=== PATIENT | female | born 1975 | race Two or more races ===

== ENCOUNTER 2021-10-22 16:53 | Inpatient (IN) | payer MEDICAID ==
[~2021-10-22] VITALS: Ht 165.1 cm; Wt 80.3 kg
[2021-10-22] MEDS ORDERED: IOHEXOL-350 100 ML BOTTLE ONE (17:45)
[2021-10-22 17:48] LABS: BASOPHILS % 0.4 % (0.0-2.0); EOSINOPHILS % 1.3 % (0.0-5.0); HEMOGLOBIN. 12.1 g/dL (12.0-16.0); LYMPHOCYTES % 17.7 % (20.0-50.0); MEAN CORPUSCULAR HEMOGLOBIN 30.7 pg (28.0-32.0); MEAN PLATELET VOLUME 9.9 fl (7.4-10.4); MONOCYTES % 5.3 % (2.0-8.0); NEUTROPHILS % 75.3 % (40.0-76.0); PLATELET 232 x1000/uL (130-400); RED BLOOD CELL COUNT 3.93 mill/uL (4.2-5.4)
[2021-10-22 17:51] LABS: CHLORIDE 101 mEq/L (98-107)
[2021-10-22 18:01] LABS: ETHANOL BLOOD < 10 mg/dL
[2021-10-22 19:48] LABS: CLARITY URINE CLEAR (CLEAR); COLOR URINE YELLOW (YELLOW); KETONES URINE NEGATIVE (NEGATIVE); LEUKOCYTE ESTERASE URINE NEGATIVE (NEGATIVE); NITRITE URINE NEGATIVE (NEGATIVE); OCCULT BLOOD URINE NEGATIVE (NEGATIVE); PROTEIN URINE NEGATIVE (NEGATIVE); UROBILINOGEN URINE 0.2 E.U./dL (0.2-1.0)
[2021-10-22 19:58] LABS: *AMPHETAMINES SCREEN URINE NEGATIVE (NEGATIVE); *BARBITURATES SCREEN URINE NEGATIVE (NEGATIVE); *BENZODIAZEPINES SCREEN URINE NEGATIVE (NEGATIVE); *COCAINE SCREEN URINE NEGATIVE (NEGATIVE); CANNABINOID URINE SCREEN PRESUMTIVE POSITIVE (NEGATIVE); METHADONE URINE SCREEN NEGATIVE (NEGATIVE); OPIATES URINE SCREEN NEGATIVE (NEGATIVE); PHENCYCLIDINE URINE SCREEN NEGATIVE (NEGATIVE)
[2021-10-22] MEDS ORDERED: GUAIFENESIN 200MG/10ML SUGAR FREE UDC PO PRN (22:45)
[2021-10-22] MEDS ORDERED: ZOLPIDEM TARTRATE 5MG TABLET PO PRN (22:45)
[2021-10-22] MEDS ORDERED: ONDANSETRON HCL 4MG/2ML INJ IV PRN (22:45)
[2021-10-22] MEDS ORDERED: NITROGLYCERIN 0.4MG TABLET SL SL PRN (22:45)
[2021-10-22] MEDS ORDERED: CLONIDINE 0.1MG TABLET PO PRN (22:45)
[2021-10-22] MEDS ORDERED: KETOROLAC 15MG/ML VIAL IV PRN (22:45)
[2021-10-22] MEDS ORDERED: MAGNESIUM/ALUMINUM HYDROXIDE/SIMETHICONE 30ML UDC PO PRN (22:45)
[2021-10-22] MEDS ORDERED: NA PHOS,M-B/NA PHOS,DI-BA ENEMA 118ML PR PRN (22:45)
[2021-10-22] MEDS ORDERED: IPRATROPIUM/ALBUTEROL 0.5-3(2.5)MG/3ML NEB NEB PRN (22:45)
[2021-10-22] MEDS ORDERED: ACETAMINOPHEN 325MG TABLET PO PRN ×2 (22:45)
[2021-10-22] MEDS ORDERED: DOCUSATE SODIUM 100MG CAPSULE PO PRN (22:45)
[2021-10-23 01:39] LABS: FOLIC ACID (FOLATE) SERUM 19.2 ng/mL (>5.38)
[2021-10-23 01:53] LABS: T4 FREE 0.97 ng/dL (0.76-1.46)
[2021-10-23 06:10] LABS: BASOPHILS % 0.5 % (0.0-2.0); EOSINOPHILS % 1.1 % (0.0-5.0); HEMATOCRIT. 36.4 % (36.0-48.0); HEMOGLOBIN. 12.6 g/dL (12.0-16.0); LYMPHOCYTES % 22.1 % (20.0-50.0); MEAN CORPUSCULAR VOLUME 89.3 fL (81.0-99.0); MEAN PLATELET VOLUME 10.1 fl (7.4-10.4); MONOCYTES % 6.4 % (2.0-8.0); NEUTROPHILS % 69.9 % (40.0-76.0); PLATELET 232 x1000/uL (130-400); RED BLOOD CELL COUNT 4.08 mill/uL (4.2-5.4); RED CELL DISTRIBUTION WIDTH 12.7 % (11.6-14.6)
[2021-10-23 06:15] LABS: CHLORIDE 109 mEq/L (98-107)
[2021-10-23 06:25] LABS: CREATINE KINASE 63 IU/L (26-192); CREATINE KINASE MB FRACTION < 1.0 ng/mL (0.5-3.6)
[2021-10-23] MEDS ORDERED: GABA-529 PO (09:09)
[2021-10-23] MEDS ORDERED: SIMV-43 PO (09:09)
[2021-10-23] MEDS ORDERED: LEVO150T8 PO (09:09)
[2021-10-23 09:15] VITALS: BP 104/61
[2021-10-23] MEDS: ENOXAPARIN 40MG/0.4ML SYR SUBCUT SCH (09:45)
[2021-10-23] MEDS: FAMOTIDINE 20MG TABLET PO SCH ×2 (09:45→20:11)
[2021-10-23] MEDS: ASPIRIN 325MG EC TABLET PO SCH (09:45)
[2021-10-23 12:00] VITALS: BP 109/65
[2021-10-23] MEDS: LEVOTHYROXINE SODIUM 150MCG TABLET PO SCH (12:42)
[2021-10-23 16:25] LABS: CREATINE KINASE 74 IU/L (26-192); CREATINE KINASE MB FRACTION < 1.0 ng/mL (0.5-3.6)
[2021-10-23 20:07] VITALS: BP 98/57
[2021-10-24] VITALS: BP 99/53
[2021-10-24 04:00] VITALS: BP 103/50
[2021-10-24] MEDS: LEVOTHYROXINE SODIUM 150MCG TABLET PO SCH (06:49)
[2021-10-24 08:01] VITALS: BP 90/55
[2021-10-24] MEDS: ASPIRIN 325MG EC TABLET PO SCH (09:00)
[2021-10-24] MEDS: FAMOTIDINE 20MG TABLET PO SCH (09:00)
[2021-10-24] MEDS: ENOXAPARIN 40MG/0.4ML SYR SUBCUT SCH (09:01)
[2021-10-24] MEDS ORDERED: ASPI-1406 MT (10:43)
[2021-10-24 10:53] VITALS: BP 102/65
== END 2021-10-24 11:08 | disposition home or self-care (01) | DRG 47 ==
LOC: ER 16:53 → MICUSO 19:49 → EDBEDREQ 20:51 → EDBEDREQSVC 22:58 → 8WST 10-23 07:24
PROVIDERS: ADMIT Internal Medicine; ATTEND Internal Medicine
DX: G45.9 Transient cerebral ischemic attack, unspecified (principal); E44.1 Mild protein-calorie malnutrition; E83.51 Hypocalcemia; E87.1 Hypo-osmolality and hyponatremia; E78.5 Hyperlipidemia, unspecified; E05.90 Thyrotoxicosis, unspecified without thyrotoxic crisis or storm; E03.9 Hypothyroidism, unspecified; Z68.29 Body mass index [BMI] 29.0-29.9, adult; Z79.82 Long term (current) use of aspirin
CPT/HCPCS: 36415; 70496; 70498; 70551; 71045; 80053; 80061; 80305; 80320; 81003; 82550; 82553; 82607; 82746; 82962; 83036; 83540; 83550; 83735; 84145; 84439; 84443; 84484; 85025; 93005; 93306; 93970; 99285; J1650; Q9967; G0480